=== PATIENT | female | born 1970 | race Caucasian/White ===

== ENCOUNTER 2017-03-04 11:08 | Emergency (ER) | payer BC ==
[2017-03-04 11:27] VITALS: BP 155/86
--- NOTE | 2017-03-04 11:46 | UC ---
Skin Complaint HPI - HPI Summary HPI Summary: 46 Y/O female presents with C/O swelling and itching on back of neck due to bee sting. Mild erythema at site, improved with application of ice. denies difficulty breathing. States has had similar reaction in the past as a child but no S/S of anaphylaxis. Blood pressure is elevated at this visit. Pt states that she typically has an elevated blood pressure with medical visits. Currently is taking anti-hypertensive as ordered. - History of Current Complaint Chief Complaint: UCSkin Time Seen by Provider: 03/04/17 11:32 Stated Complaint: BEE STING Hx Obtained From: Patient Hx Last Menstrual Period: 01/2018 ?: No Onset/Duration: Sudden Onset Skin Exposure Onset/Duration: Minutes Ago Timing: Constant Onset Severity: Mild Current Severity: Mild Pain Intensity: 0 Pain Scale Used: 0-10 Numeric Location: Discrete - back of neck Character: Swelling, Redness, Raised Aggravating: Nothing Alleviating: Cold Compresses Associated Signs & Symptoms: Positive: Negative Related History: Insect Bite/Sting - Bee sting - Allergy/Home Medications Allergies/Adverse Reactions: Allergies Allergy/AdvReac Type Severity Reaction Status Date / Time Adhesive Tape Allergy Rash Verified 03/04/17 11:14 Sulfa Antibiotics Allergy Rash Verified 03/04/17 11:14 Home Medications: Home Medications Cholecalciferol [Vitamin D3] 03/04/17 [History] Cinnamon 1,000 mg PO BID 03/04/17 [History Confirmed 03/04/17] Dapagliflozin Propanediol [Farxiga] 10 mg PO DAILY 03/04/17 [History Confirmed 03/04/17] Fiber Advance Gummies 03/04/17 [History] Glimepiride [Amaryl] 4 mg PO BID 03/04/17 [History Confirmed 03/04/17] Hair, Skin, Nail Gummies 03/04/17 [History] Losartan TAB* [Cozaar TAB*] 50 mg PO DAILY WITH MEAL 03/04/17 [History Confirmed 03/04/17] Multivites Gummies 03/04/17 [History] Covert-3 Fatty Acids [Fish Oil] 1,000 mg PO DAILY WITH MEAL 03/04/17 [History Confirmed 03/04/17] Omeprazole CAP* [Prilosec CAP* 20 MG] 20 mg PO DAILY WITH MEAL 03/04/17 [ History Confirmed 03/04/17] Simvastatin [Zocor 40 MG (NF)] 40 mg PO DAILY 03/04/17 [History Confirmed ] metFORMIN* [Glucophage 1000 MG TAB *] 1,000 mg PO BID 03/04/17 [History Confirmed 03/04/17] Review of Systems Constitutional: Negative Skin: Other - erythema Eyes: Negative ENT: Negative Respiratory: Negative Cardiovascular: Negative Gastrointestinal: Negative Genitourinary: Negative Motor: Negative Neurovascular: Negative Musculoskeletal: Negative Neurological: Negative Psychological: Negative All Other Systems Reviewed And Are Negative: Yes PMH/Surg Hx/FS Hx/Imm Hx Previously Healthy: Yes - Surgical History Surgical History: Yes Surgery Procedure, Year, and Place: Breast reduction - Social History Alcohol Use: Occasionally Substance Use Type: None Smoking Status (MU): Former Smoker When Did the Patient Quit Smoking/Using Tobacco: 8 1/2 years Physical Exam Triage Information Reviewed: Yes Appearance: Well-Appearing Vital Signs: Initial Vital Signs Temp 98.9 F 03/04/17 11:20 Pulse 95 03/04/17 11:20 Resp 16 03/04/17 11:20 BP 155/86 03/04/17 11:20 Pulse Ox 97 03/04/17 11:20 Vital Signs Reviewed: Yes Eye Exam: Normal ENT Exam: Normal Neck exam: Normal Respiratory Exam: Normal Respiratory: Positive: Lungs clear Cardiovascular Exam: Normal Cardiovascular: Positive: RRR Musculoskeletal Exam: Normal Neurological Exam: Normal Psychological Exam: Normal Skin Exam: Normal Course/Dx - Differential Diagnoses - Skin Complaint Differential Diagnoses: Local Allergic Reaction - Diagnoses Provider Diagnoses: Local allergic reaction - bee sting Discharge - Discharge Plan Condition: Stable Disposition: HOME Patient Education Materials: Insect Bite or Sting (ED) Additional Instructions: You have a mild local reaction to an insect bite. Continue to apply ice as needed. You may apply antihistamine cream or take Benadryl as needed for itching and swelling. Please return to the urgent care or emergency should you begin to experience severe swelling or difficulty breathing.
== END 2017-03-04 12:05 | disposition home or self-care (01) ==
LOC: UCEAST 11:08
DX: T63.441A Toxic effect of venom of bees, accidental (unintentional), initial encounter (principal); Z88.2 Allergy status to sulfonamides
CPT/HCPCS: 99212; G0463